=== PATIENT | female | born 2000 | race Caucasian/White ===

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

== ENCOUNTER 2019-12-23 06:58 | Emergency (ER) | payer OTHER ==
[~2019-12-23] VITALS: Ht 160 cm; Wt 47.7 kg
[2019-12-23] MEDS ORDERED: ACETAMINOPHEN 500 MG TABLET PO ONE (07:15)
[2019-12-23] MEDS ORDERED: DEXAMETHASONE SOD PHOS 4 MG/ML VIAL IM ONE (08:00)
[2019-12-23] MEDS ORDERED: PENICILLIN G BENZATHINE LA 1,200,000 UNITS/2 ML SYRINGE IM ONE (08:00)
[2019-12-23] MEDS ORDERED: IBUPROFEN 100 MG/5 ML SUSPENSION UDCUP PO ONE (08:00)
[2019-12-23] MEDS ORDERED: HYDROCODONE/ACETAMINOPHEN 7.5-325 MG/15 ML SOLUTION UDCUP PO ONE (08:00)
[2019-12-23 10:13] VITALS: BP 125/75
== END 2019-12-23 10:50 | disposition home or self-care (01) ==
LOC: EMS 06:59
DX: J02.0 Streptococcal pharyngitis (principal); Z20.828 Contact with and (suspected) exposure to other viral communicable diseases
CPT/HCPCS: 87430; 96372; 99284; J0561; J1100; U0003

== ENCOUNTER 2022-01-05 17:35 | Emergency (ER) | payer OTHER | END 2022-01-05 19:04 | disposition left against medical advice (07) | LOC: EMS 17:36 | DX: Z53.21 Procedure and treatment not carried out due to patient leaving prior to being seen by health care provider (principal) ==

== ENCOUNTER 2023-08-19 21:59 | Emergency (ER) | payer OTHER ==
[~2023-08-19] VITALS: Ht 160 cm; Wt 52.0 kg
[2023-08-19 22:23] VITALS: TEMP 98.2
[2023-08-20 00:10] VITALS: BP 112/57; PULSE 75; RESP 16
[2023-08-20] MEDS ORDERED: CLOT15CR29 TP (00:24)
[2023-08-20] MEDS ORDERED: DIPH50CA37 PO (00:24)
[2023-08-20] MEDS: DiphenhydrAMINE HCL 25 MG CAPSULE PO ONE (00:28)
== END 2023-08-20 00:36 | disposition home or self-care (01) ==
LOC: EMS 21:59
DX: B35.4 Tinea corporis (principal); L29.9 Pruritus, unspecified
CPT/HCPCS: 99282; Z7502; Z7610

== ENCOUNTER 2023-09-01 21:56 | Emergency (ER) | payer OTHER ==
[~2023-09-01] VITALS: Ht 160 cm; Wt 52.3 kg
[~2023-09-01 21:56] MED LIST changes: +CLOT15CR29 TP; +DIPH50CA37 PO; -NOCURR
[2023-09-01 22:01] VITALS: TEMP 100.2
[2023-09-01] MEDS: SODIUM CHLORIDE 0.9% 1,550 ML IV ONE (22:39)
[2023-09-01 22:46] LABS: BASOPHILS % (AUTO) 0.3 % (0.0-2.0); EOSINOPHILS % (AUTO) 0.4 % (1.0-6.0); HEMATOCRIT 39.6 % (36-46); LYMPHOCYTES # (AUTO) 1.9 K/uL (1.0-4.8); LYMPHOCYTES % (AUTO) 16.9 % (22.0-44.0); MEAN CORPUSCULAR HEMOGLOBIN 29.4 pg (26.0-34.0); MEAN CORPUSCULAR HGB CONC 32.8 G/dL (31.0-37.0); MEAN CORPUSCULAR VOLUME 90 fL (80-100); MONOCYTES # (AUTO) 0.9 K/uL (0.1-1.0); MONOCYTES % (AUTO) 8.2 % (2.0-9.0); NEUTROPHILS # (AUTO) 8.3 K/uL (1.8-7.7); NEUTROPHILS % (AUTO) 74.2 % (40.0-70.0); PLATELET COUNT (AUTO) 217 K/uL (150-450); RED BLOOD CELL COUNT(AUTO) 4.42 MIL/uL (4.00-5.20); RED CELL DISTRIBUTION WIDTH 14.1 % (11.5-14.5); WHITE BLOOD COUNT (AUTO) 11.2 K/uL (4.5-11.0)
[2023-09-01 22:49] LABS: PROTHROMBIN TIME 10.7 SEC (9.4-11.6)
[2023-09-01 22:55] LABS: LACTIC ACID 0.8 mmol/L (0.4-2.0)
[2023-09-01 22:59] LABS: APPEARANCE,URINE TURBID (CLEAR); BILIRUBIN,URINE NEGATIVE (NEGATIVE); COLOR,URINE YELLOW (YELLOW); GLUCOSE, URINE (UA) NEGATIVE (NEGATIVE); KETONES,URINE NEGATIVE (NEGATIVE); LEUKOCYTE ESTERASE ,URINE LARGE (NEGATIVE); NITRATE,URINE NEGATIVE (NEGATIVE); OCCULT BLOOD,URINE LARGE (NEGATIVE); PROTEIN,URINE 300-600,SEE CONFIRM mg/dL (NEGATIVE); SPECIFIC GRAVITIY, URINE 1.016 (1.003-1.030); UROBILINOGEN,URINE <=1.0 mg/dL (<=1.0)
[2023-09-01 22:59] LABS: ANION GAP 10 mmol/L (8-16); CARBON DIOXIDE 29 mmol/L (22-29); CHLORIDE 101 mmol/L (98-107); CREATININE 0.82 mg/dL (0.60-1.30); GLOMERULAR FILTR. RATE CALC > 60 mL/min (>60); GLUCOSE,RANDOM 94 mg/dL (70-110); POTASSIUM 3.9 mmol/L (3.5-5.1); SODIUM SERUM 140 mmol/L (136-145); UREA NITROGEN, BLOOD 12 mg/dL (7-18)
[2023-09-01] MEDS: CefTRIAXone SODIUM 500 MG in DEXTROSE 5%-WATER 50 ML IV ONE (23:01)
[2023-09-01] MEDS: 0.9% SODIUM CHLORIDE 10 ML SYRINGE IVP PRN (23:02)
[2023-09-01 23:04] LABS: ALANINE AMINOTRANSFERASE 17 U/L (12-78); ALBUMIN 4.2 g/dL (3.4-5.0); ALKALINE PHOSPHATASE 90 U/L (46-116); ASPARTATE AMINOTRANSFERASE 13 U/L (15-37); BILIRUBIN,TOTAL 0.7 mg/dL (0.1-1.0); TOTAL PROTEIN, SERUM 8.3 g/dL (6.4-8.2)
[2023-09-01 23:12] LABS: COVID AG,FIA SOURCE NASAL SWAB
[2023-09-01 23:34] VITALS: BP 124/71; PULSE 112; RESP 18
[2023-09-01 23:34] LABS: SARS-COV2 (COVID) ANTIGEN,FIA Negative (Negative)
[2023-09-01 23:42] LABS: BACTERIA,URINE Few /HPF (None Seen); SQUAMOUS EPITHELIAL CELL,UR Moderate /LPF (None Seen); SULFOSALICYLIC ACID,URINE 4+ (Negative); WBC,URINE 51-100 /HPF (0-5)
[2023-09-02] MEDS ORDERED: CEPH-558 PO (00:20)
== END 2023-09-02 00:34 | disposition home or self-care (01) ==
LOC: EMS 21:56
DX: N39.0 Urinary tract infection, site not specified (principal); R30.0 Dysuria; R35.0 Frequency of micturition; R39.15 Urgency of urination; Z79.899 Other long term (current) drug therapy; Z20.822 Contact with and (suspected) exposure to COVID-19
CPT/HCPCS: 99285; 96365; 71045; 87426; 80053; 81001; 83605; 85025; 85610; 87040; 36415; 87086; 87186; 93005; 84145; J0696; J7060; J7030; 81002